=== PATIENT | male | born 1945 | race Caucasian/White ===

== ENCOUNTER 2016-09-28 05:38 | Inpatient (IN) | payer BC, OTHER ==
--- NOTE | 2016-09-17 13:07 | GHP ---
[f rep st] PREOP HISTORY AND PHYSICAL DATE OF ADMISSION: He will be an a.m. admission for surgery at [facility] on September 28, 2016. PROBLEM: Left knee arthritis. HISTORY OF PRESENT ILLNESS: The patient is a 71-year-old man admitted for a left total knee arthroplasty. I did his right total knee arthroplasty in June 2015, and he has had a good result. The patient has had progressive bilateral knee degenerative arthritis over many years. I have been following him for 3 or 4 years. He is having daily pain and night pain in the left knee. He has tried physical therapy and oral antiinflammatory medications. His walking and other activities of daily living are limited because of the pain in his left knee. He had a right total knee arthroplasty on July 15, 2015, which has been very successful. He is admitted this time for a left total knee arthroplasty. PAST MEDICAL HISTORY: He is treated for anxiety and depression. He has sleep apnea and uses a CPAP machine. No history of DVT or hepatitis. CURRENT MEDICATIONS: Escitalopram 5 mg per day, Lamictal 100 mg per day. ALLERGIES: None. SOCIAL HISTORY: The patient is an instrument installer. He is . He does not smoke cigarettes and occasionally drinks alcohol. FAMILY HISTORY: Positive for cancer and arthritis. PHYSICAL EXAMINATION: GENERAL: He is a healthy-appearing man. Height 5 feet 10 inches. Weight 202 pounds. BMI 29. EYES: Conjunctivae and sclerae are clear. Pupils are round and reactive. MOUTH: Good oral hygiene. No loose teeth. CHEST: Clear. HEART: Regular rhythm. No murmurs. EXTREMITIES: Pertinent findings are limited to his left knee. He has full extension and 120 degrees of flexion. Moderate effusion. Moderate patellofemoral crepitation. He has increased valgus alignment. IMAGING: Films show advanced degenerative arthritis in the left knee with valgus alignment. He is [id number] in the lateral compartment and has eroded some of the subchondral bone on the lateral tibial plateau. He has significant patellofemoral arthritis as well. IMPRESSION: 1. Left knee severe degenerative arthritis with valgus deformity. 2. Fifteen months status post successful right total knee arthroplasty. 3. Treatment for depression. He will undergo a left total knee arthroplasty. The surgery has been described to him, including the risks, complications, expectations, and recovery time. I have stressed the importance of postoperative physical therapy. I have advised him that with bilateral procedures there can be mild tios-ag-ssmd differences in the recovery and even in the final result. All his questions have been answered, and he consents to surgery. /[id number]/MODL MTDD
[2016-09-28] MEDS ORDERED: NS IV ONE (06:00)
[2016-09-28] MEDS ORDERED: ACETAMINOPHEN 325 MG TAB PO ONE (06:00)
[2016-09-28] MEDS ORDERED: FAMOTIDINE 20 MG TAB PO ONE (06:00)
[2016-09-28] MEDS ORDERED: POVIDONE-IODINE 20 ML in SODIUM CL IRRIG SOLUTION 500 ML IRR ONE (06:00)
[2016-09-28] MEDS ORDERED: DEXAMETHASONE 4 MG/ML VIAL IVP ONE (06:00)
[2016-09-28] MEDS ORDERED: CEFAZOLIN 2 GM/DEXTR 100 ML IV ONE (06:00)
[2016-09-28] MEDS ORDERED: TRANEXAMIC ACID IV ONE (06:00)
[2016-09-28] MEDS ORDERED: CHLORHEXIDINE GLUC HIBICLENS 118 ML BTL TP ONE (06:00)
[2016-09-28] MEDS ORDERED: ROPI/epiNEPH/KETOROLAC JOINT COCKTAIL IU ONE (06:00)
[2016-09-28] MEDS ORDERED: LR 1,000 ML IV ONE (06:02)
[2016-09-28] MEDS ORDERED: ceFAZolin 1 GM/5 ML SYR ONE (06:39)
[2016-09-28] MEDS ORDERED: VANCOMYCIN 1 GM VIAL IV ONE (06:39)
[2016-09-28] MEDS ORDERED: MIDAZOLAM 2 MG/2 ML VIAL ONE (07:00)
[2016-09-28] MEDS ORDERED: PROPOFOL 200 MG/20 ML VIAL ONE ×2 (07:05→08:09)
[2016-09-28] MEDS ORDERED: fentaNYL 100 MCG/2 ML INJ ONE (07:06)
[2016-09-28] MEDS ORDERED: ONDANSETRON 4 MG/2 ML VIAL ONE (07:57)
[2016-09-28] MEDS ORDERED: ROPIVACAINE HCL 150 MG/30 ML INJ ONE (08:49)
[2016-09-28] MEDS ORDERED: clonIDINE 1 MG/10 ML VIAL EP ONE (08:49)
[2016-09-28] MEDS ORDERED: LACTULOSE 20 GM/30 ML UDCUP PO PRN (09:05)
[2016-09-28] MEDS ORDERED: PHARMACY PAIN CONSULT 1 EA MISC PRN (09:05)
[2016-09-28] MEDS ORDERED: PROMETHAZINE HCL 25 MG SUPPR PR PRN (09:05)
[2016-09-28] MEDS ORDERED: traMADol 50 MG TAB PO PRN (09:05)
[2016-09-28] MEDS ORDERED: CYCLOBENZAPRINE 10 MG TAB PO PRN (09:05)
[2016-09-28] MEDS ORDERED: NS 500 ML IV PRN (09:05)
[2016-09-28] MEDS ORDERED: TEMAZEPAM 15 MG CAP PO PRN (09:05)
[2016-09-28] MEDS ORDERED: MAGNESIUM HYDROXIDE 30 ML UDCUP PO PRN (09:05)
[2016-09-28] MEDS ORDERED: oxyCODONE IR 5 MG TAB PO PRN (09:05)
[2016-09-28] MEDS ORDERED: POLYETHYLENE GLYCOL 3350 17 GM PKT PO PRN (09:05)
[2016-09-28] MEDS ORDERED: BISACODYL 10 MG SUPP PR PRN (09:05)
[2016-09-28] MEDS ORDERED: DIPHENOXYLATE/ATROPINE LOMOTIL 1 TAB PO PRN (09:05)
[2016-09-28] MEDS ORDERED: diphenhydrAMINE 25 MG CAP PO PRN (09:05)
[2016-09-28] MEDS ORDERED: KETOROLAC 30 MG/1 ML SDV IVP PRN (09:05)
--- NOTE | 2016-09-28 09:06 | POSTOPPROG ---
Post Op Note Date of Operation: 09/28/16 Surgeon: Shade Obando Para Machine Operator: Jeannine Anesthesiologist: Ab Anesthesia: IV Sedation, Spinal Post-op Diagnosis: left TKA Procedure: L TKA Inf/Abcess present in the surg proc area at time of surgery?: No EBL: 50-100
[2016-09-28] MEDS ORDERED: LR 1,000 ML IV SCH (09:30)
--- NOTE | 2016-09-28 09:58 | GOP ---
[f rep st] OPERATIVE REPORT DATE OF OPERATION: 09/28/2016 SURGEON: Shade Obando MD ADMINISTRATIVE AIDE: Bandar Millard CFA; and DAVI Duval. ANESTHESIA: A combination of Marcaine spinal, IV sedation, and adductor canal block. ANESTHESIOLOGIST: Jamie Berger MD. PREOPERATIVE DIAGNOSIS: Left knee severe degenerative arthritis. POSTOPERATIVE DIAGNOSIS: Left knee severe degenerative arthritis. PROCEDURE PERFORMED: On 09/28/2016, left total knee arthroplasty, cemented, Sanchez and Nephew Journe y II, posterior stabilized. FINDINGS: DESCRIPTION OF PROCEDURE: The patient was given 2 g of preoperative IV Ancef within 60 minutes of s urgery. He also received IV tranexamic acid at a dose of 10 mg/kg. He was placed on the operating room table and given spinal anesthesia with Marcaine by Dr. Berger. He was then placed supine and gi branden IV sedation. A Quiñones catheter was not used. He wore a CRISTELA stocking and SCD on the opposite leg . A bolster was placed under his left hip to prevent excessive external rotation of his leg. The l eft lower extremity was prepped with ChloraPrep from the upper thigh tourniquet to the tips of the t oes. It was draped free using sterile sheets, stockinette, and Ioban plastic adhesive drape. The l ower leg was wrapped with compressive Coban. The leg was exsanguinated with elevation and a 6-inch compressive wrap, and the pneumatic tourniquet was inflated to 250 mmHg. The World Health Organization time-out was performed to verify the correct patient identity and the correct surgical side. The [place] time-out was also performed. The [employer] leg holding device was sterilely attached to the operating room table and used throughout the procedure to help position the knee. A straight midline incision was made centered on the parrish lla. Subcutaneous tissues were sharply divided, and hemostasis was obtained using electrocautery. A medial subcutaneous flap was developed and the capsule and synovium were opened in a medial parapa tellar fashion. The patient had a previous lateral parapatellar incision from previous surgery. I was careful to stay far enough medially that there was a good bridge of intact healthy skin. Extens lashon degenerative changes were present in all 3 compartments. His medial capsule and periosteum were lightly elevated off the rim of the medial tibial plateau all the way around to the posteromedial c orner. His medial collateral ligament was released enough to balance the medial side of the knee. In order to improve exposure, his patella was prepared first. The original thickness of the patella was measured. Large peripheral osteophytes were removed. I cut a flat surface on the back of the patella. It was sized for a 41 mm Resurfacing component. I removed enough bone from the patella culp ch that the remaining bone plus the thickness of the patellar component recreated the original thick ness of the patella. The composite thickness was 26 mm. The intramedullary alignment guide system was used to set up the distal femoral cut. The distal fem ur was cut in 5 degrees of valgus. Because of a slight preoperative flexion contracture, I made a + 2 mm cut on the distal femur. The sizing jig was used to determine proper femoral sizing. I shifte d the jig anteriorly 1 mm in order to accommodate a size 8 femoral component without notching the an terior cortex. The 5-in-1 cutting block was applied and the anterior and posterior condylar cuts an d chamfer cuts were made. The final jig was used to remove the central portion of the distal femur to accommodate the posterior stabilized femoral component. I was careful to determine proper rotati on by referencing off [place]'s line. Each cut was checked for accuracy before and after it was m vale. The femur was sized for a size 8 posterior stabilized component. Trial component was tapped s ecurely into place and was a good fit. Next, the tibia was prepared. The proximal tibial cut was made using the extramedullary alignment g uide system. The cut was made in a few degrees of posterior slope. I was careful to achieve proper varus valgus alignment and proper rotation. The posterior compartment was cleared of meniscal remn ants. Osteophytes were removed from the back of the femoral condyles. I checked the flexion and ex tension gaps and they were equal, balanced and rectangular. The tibia was sized for a size 7 component. With the trial components in place, I selected an 11 mm posterior stabilized tibial insert. The knee came to full extension and flexed to 130 degrees. Th ere was no overstuffing in flexion. His collateral ligaments were stable and balanced in 90 degrees of flexion and full extension. The trial patellar button was applied. Patellar tracking was check ed. Tracking was excellent without any digital pressure. 40 mL of the joint anesthetic cocktail were injected in the posterior capsule, the periarticular str uctures, the quadriceps muscle and tendon areas, and the subcutaneous tissues along the skin edges. A second dose of IV tranexamic acid was given at a dose of 10 mg/kg. The surfaces were prepared for cementing. They were carefully cleaned with the pulsating lavage irr igation and thoroughly dried. A CarboJet device was used to blow dry the cancellous surfaces. A do uble batch of high viscosity methylmethacrylate cement with 2 g of powdered vancomycin added was mix ed. While it was still in a semiliquid state, all [address] components were [address] in place. Excess ceme nt was removed before it hardened. The 11 mm trial tibial insert was re-tried and was the proper thickness. The actual component was i nserted and locked into place. The knee was thoroughly irrigated one final time with a dilute Betad ine solution. The tourniquet was deflated. Total tourniquet time was 54 minutes. The vastus medialis portion of the extensor mechanism was repaired with several interrupted figure-o f-eight #2 FiberWire sutures. The capsule and synovium were closed first with multiple interrupted [id number] 0 PDS sutures, followed by a running #2 barbed Ethicon Stratafix PDO suture. Subcut aneous tissues were closed with a running 0 barbed Ethicon Stratafix Monoderm suture. The skin was closed with a running 3-0 barbed Ethicon Stratafix Monoderm subcuticular suture. The skin was glenn d with half-inch Steri-Strips. The wound was covered with Xeroform gauze and flat 4 x 4's, and the knee was wrapped with Kerlix and a 6-inch compressive wrap. A long-leg CRISTELA stocking and SCD were ap plied followed by the cooling device. The patient wore a stocking and SCD on the opposite leg durin g the procedure. I used a size 8 cemented Sanchez and Nephew Oxinium posterior stabilized femoral component, size 7 eunice ented tibial base plate, 11 mm posterior stabilized tibial insert, and a 41 mm cemented round all-po lyethylene resurfacing patellar component. The estimated blood loss following inflation of the tourniquet was about 100 cc. Sponge and needle counts were correct on 2 occasions. He was awakened from anesthesia, transferred to his hospital [facility] and taken to PACU in satisfactor y condition. There were no intraoperative complications. In the PACU, for additional postoperative pain control, Dr. Berger performed an adductor canal block. Bandar Millard and Frank Han acted as surgical assistants. Their assistance was a medical rosalia membreno. /[id number]/MODL
[2016-09-28] MEDS ORDERED: ACETAMINOPHEN 325 MG TAB PO SCH (12:00)
[2016-09-28] MEDS: HYDROCODONE/APAP 5/325 TAB PO PRN ×3 (13:21→20:32)
[2016-09-28] MEDS: ceFAZolin 2 GM/DEXTROSE 100 ML IV SCH ×2 (14:17→21:19)
[2016-09-28] MEDS: TRANEXAMIC ACID 650 MG TAB PO SCH (15:44)
[2016-09-28] MEDS ORDERED: ACETAMINOPHEN 325 MG TAB PO PRN (16:14)
[2016-09-28] MEDS: SENNOSIDES/DOCUSATE SODIUM TAB PO SCH (20:32)
[2016-09-28] MEDS: FAMOTIDINE 20 MG TAB PO SCH (20:33)
[2016-09-28] MEDS: ASPIRIN 325 MG TAB PO SCH (20:33)
[2016-09-28] MEDS ORDERED: lamoTRIgine 100 MG TAB PO SCH (21:00)
[2016-09-29] MEDS: TRANEXAMIC ACID 650 MG TAB PO SCH ×2 (00:01→09:13)
[2016-09-29 04:25] VITALS: TEMP 98.1
[2016-09-29 04:38] LABS: HEMATOCRIT 33.7 % (40.0-51.0); HEMOGLOBIN 11.3 g/dL (13.7-17.5)
[2016-09-29] MEDS: HYDROCODONE/APAP 5/325 TAB PO PRN ×2 (05:14→12:49)
[2016-09-29] MEDS ORDERED: lamoTRIgine 100 MG TAB PO SCH (06:00)
[2016-09-29] MEDS ORDERED: ESCITALOPRAM OXALATE 10 MG TAB PO SCH (06:00)
[2016-09-29 07:57] VITALS: BP 117/59; PULSE 62; RESP 14; O2SAT 94
--- NOTE | 2016-09-29 08:51 | SOAPPROG ---
SOAP Progress Note Assessment/Plan: Assessment: Afebrile. Awake and alert. Mild pain. H/H is good. Films look good. Plan:Up with PT today. DC later today. Long leg film. [place] dsg. 09/29/16 08:50 Objective: Vital Signs Temp Pulse Resp BP Pulse Ox 36.7 C 62 14 117/59 L 94 09/29/16 04:24 09/29/16 07:56 09/29/16 07:56 09/29/16 07:56 09/29/16 07:56 Laboratory Results 09/29/16 04:16 09/28/16 09/29/16 09/30/16 05:59 05:59 05:59 Intake Total 4185 Output Total 1350 Balance 2835 ICD10 Worksheet Patient Problems: Problems Problem Status Onset Osteoarthritis of left knee Acute Localized osteoarthritis of right knee Acute
--- NOTE | 2016-09-29 08:51 | PDIAF ---
- Diagnosis Diagnosis: left knee OA Code Status: Full Code - Medication Management Discharge Medications: Medications to Continue on Transfer Escitalopram Oxalate [Lexapro 10 MG] 5 mg PO DAILY06 06/12/15 [Last Taken 04:20] lamoTRIgine [LamICTAL 100 MG (*)] 100 mg PO DAILY06 06/12/15 [Last Taken 04:20] lamoTRIgine [LamICTAL 100 MG (*)] 150 mg PO HS 06/12/15 [Last Taken 09/27/16] Naproxen Sodium [Aleve 220 MG (*)] 660 mg PO DAILY PRN 09/07/16 [Last Taken 09/03] Acetaminophen [Tylenol 325mg (*)] 650 mg PO Q6HRS PRN #0 tab 09/29/16 [Last Taken Unknown] Aspirin [Aspirin 325 mg (*)] 325 mg PO DAILY #21 tab 09/29/16 [Last Taken Unknown] Ferrous Sulfate [Slow Fe 140 MG (*)] 140 mg PO DAILY #30 tab.er 09/29/16 [Last Taken Unknown] Hydrocodone/APAP 5/325 [[employer] 5/325 (*)] 1 - 2 tab PO Q4HRS PRN #30 tab [Last Taken Unknown] traMADol [Ultram 50 mg (*)] 50 mg PO Q6HRS PRN #0 tab 09/29/16 [Last Taken Unknown] Discharge Medications: Refer to the Discharge Home Medication list for PRN reason. PICC Care - Routine: N/A - Orders Services needed: Home Care, Physical Therapy Home Care Face to Face: I certify that this patient was under my care and that I had the required [id number] encounter meeting the encounter requirements on the discharge day. My findings support the fact that the patient is homebound as defined in CMS Chapter 7 Medicare Benefits Manual 30.1.1, The condition of the patient is such that there exists a normal inability to leave home and consequently, leaving home would require a considerable and taxing effort. Diet Recommendation: no restrictions on diet Diet Texture: Regular Texture Diet Quiñones: Not applicable Nick Stockings Discontinue Date: 1 week Wound Care Instructions: keep clean and dry. You may shower. Activity/Weight Bearing Restrictions: as tolerated. Additional: follow up in 10 days as scheduled. - Follow Up Care Current Providers and Referrals: Eber Brice MD [Primary Care Provider] - Shade Obando MD [Medical Doctor] - 10/11/16 9:30 am
[2016-09-29] MEDS ORDERED: FERROUS SULFATE 140 MG TAB.ER PO SCH (09:00)
--- NOTE | 2016-09-29 09:16 | GDS ---
[f rep st] DISCHARGE SUMMARY ADMISSION DIAGNOSIS: Left knee severe degenerative arthritis. DISCHARGE DIAGNOSIS: Left knee severe degenerative arthritis. OPERATION PERFORMED: On 09/28/2016, a left total knee arthroplasty. POSTOP COMPLICATIONS: None. CONDITION ON DISCHARGE: Improved. DESCRIPTION OF HOSPITAL COURSE: The patient was admitted to the hospital on morning of surgery. Hi s admission CBC was normal. The same day, under a combination of Marcaine spinal and IV sedation an d adductor canal block, he underwent a left total knee arthroplasty. Postoperatively, he was treate d with multimodal DVT prophylaxis including early mobilization and aspirin. On the first postoperat lashon day, his hemoglobin and hematocrit were 11.3 and 33.7. He was seen by Physical Therapy and made good progress with ambulation and knee range of motion exercises. By the time of discharge, he was afebrile and was independently walking. DISPOSITION: The patient is discharged to his home. DISCHARGE INSTRUCTIONS: 1. He will have home physical therapy. 2. He may progress to full weightbearing on the left as tolerated. 3. Continue CRISTELA stockings for 1 week. 4. Continue aspirin 325 mg p.o. daily for 21 days. FOLLOWUP: I will see him back in the office on 10/11/2016. If there are any problems, he is to gelacio sage at the office. /[id number]/MODCari
[2016-09-29] MEDS: ASPIRIN 325 MG TAB PO SCH (09:50)
[2016-09-29] MEDS: FAMOTIDINE 20 MG TAB PO SCH (09:50)
[2016-09-29] MEDS: SENNOSIDES/DOCUSATE SODIUM TAB PO SCH (09:50)
== END 2016-09-29 14:03 | disposition home health service (06) | DRG 470 ==
LOC: F3N 05:38
PROVIDERS: ADMIT Orthopaedic Surgery; ATTEND Orthopaedic Surgery
PROC: 0SRD0J9 Replacement of Left Knee Joint with Synthetic Substitute, Cemented, Open Approach (ICD-10-PCS; principal; 2016-09-28 07:15)
DX: M17.12 Unilateral primary osteoarthritis, left knee (principal); G47.33 Obstructive sleep apnea (adult) (pediatric)
CPT/HCPCS: 97116-GP; 97161-GP; 97165-GO; C1713; G8978-GP-CJ; G8979-GP-CI; G8980-GP-CI; G8987-GO-CI; G8988-GO-CI; G8989-GO-CI; J0171; J0690; J0735; J1100; J1885; J2250; J2405; J2704; J2795; J3010; J3370

== ENCOUNTER → 2016-11-17 | Outpatient (CLI) | payer BC | LOC: FIMAGING 17:46 | PROVIDERS: ATTEND Orthopaedic Surgery | DX: R22.42 Localized swelling, mass and lump, left lower limb (principal) ==

== ENCOUNTER 2018-08-27 21:36 | Emergency (ER) | payer BC ==
[2018-08-28] MEDS ORDERED: TDAP ADULT 0.5 ML INJ (BOOSTRIX) IM ONE (00:12)
--- NOTE | 2018-08-28 00:15 | EDPHY ---
H & P Time Seen by Provider: 08/28/18 00:12 HPI/ROS: CHIEF COMPLAINT: Left index finger laceration HISTORY OF PRESENT ILLNESS: 73-year-old male with out-of-date tetanus sustained accidental laceration to his left index finger dorsal aspect PIP joint when he was going through a doorway caring object and impacted doorway. No paresthesia. No flexor or extensor deficits. PHYSICAL EXAM (Prior to examination, patient consented to physical exam, hands were washed and my usual and customary physical exam procedures followed) 1) GENERAL: Well-developed, well-nourished, alert and oriented. Appears to be in no acute distress. 2) HEAD: Normocephalic 3) HEENT: sclera anicteric 4) LUNGS: Breathing comfortably. 5) SKIN: Left index finger dorsal aspect PIP joint transverse laceration measuring 2.5 cm . No signs of infection. Negative kanavel. 6) MUSCULOSKELETAL: Able to hold extension against resistance 7) NEUROLOGIC: Full sensation two-point discrimination intact Smoking Status: Never smoked Constitutional: Initial Vital Signs Temperature (C) 36.6 C 08/27/18 22:05 Heart Rate 57 L 08/27/18 22:05 Respiratory Rate 16 08/27/18 22:05 Blood Pressure 122/60 H 08/27/18 22:05 O2 Sat (%) 92 08/27/18 22:05 O2 Delivery Mode Room Air Allergies/Adverse Reactions: No Known Allergies Allergy (Verified 09/28/16 06:29) Home Medications: Medication Instructions Recorded Escitalopram Oxalate [Lexapro 10 5 mg PO DAILY06 06/12/15 MG] lamoTRIgine [LamICTAL 100 MG (*)] 100 mg PO DAILY06 06/12/15 MDM/Departure - [facility] Procedures: Procedure: Laceration repair. I explained the indications, risks and benefits for both laceration repair and anesthetic administration. Verbal consent was obtained from the patient. The laceration on the left 2nd digit was anesthetized using 0.5% bupivicaine without epinephrine digital nerve block. After anesthetic administered the patient was observed for a period of time and had no apparent adverse effects. The wound was cleaned, prepped, draped in normal sterile fashion and explored to its base. No foreign body seen, no foreign bodies palpated. There were no deep structures involved. No tendon injury was identified. The wound was repaired with 7 simple interrupted 5 O Ethilon sutures. The wound repair was complex. The procedure was performed by myself. Patient has been informed that scarring will occur, although efforts have been made to minimize this. Procedure: Splint A aluminum finger splint was applied by ER fishing tool technician oil well. After application of the splint I returned and re-examined the patient. The splint was adequately immobilizing the joint and distal to the splint the patient's circulation and sensation were intact. Patient shows no signs of compartment syndrome. Was given orthopedic precautions. - Depart Disposition: Home, Routine, Self-Care Clinical Impression: Laceration of finger of left hand Condition: Good Instructions: Finger Laceration (ED) Additional Instructions: Return to the ER if you develop redness, swelling, discharge, warmth to the wound, red streaks going up your arm, or any other symptoms that concern you. Referrals: Return, to the ER in 10 days for suture removal [Other] - As per Instructions
[2018-08-28 01:03] VITALS: BP 118/71
== END 2018-08-28 01:02 | disposition home or self-care (01) ==
PROC: 0HQGXZZ Repair Left Hand Skin, External Approach (ICD-10-PCS; principal; 2018-08-27)
DX: S61.211A Laceration without foreign body of left index finger without damage to nail, initial encounter (principal); Z23 Encounter for immunization; W22.8XXA Striking against or struck by other objects, initial encounter; Y93.89 Activity, other specified
CPT/HCPCS: L3925